=== PATIENT | female | born 2000 | race American Indian/Alaskan Native ===

== ENCOUNTER 2023-08-20 15:11 | Emergency (ER) | payer SELFPAY | END 2023-08-20 18:12 | disposition home or self-care (01) | LOC: MW.ED 15:11 | DX: K04.7 Periapical abscess without sinus (principal); Z79.899 Other long term (current) drug therapy; Z88.0 Allergy status to penicillin; Z88.1 Allergy status to other antibiotic agents; Z75.8 Other problems related to medical facilities and other health care | CPT/HCPCS: 99282; 99283 ==